=== PATIENT | male | born 1950 | race Caucasian/White ===

== ENCOUNTER 2020-06-01 10:47 | Emergency (ER) | payer OTHER ==
[~2020-06-01] VITALS: Ht 170.2 cm; Wt 93.2 kg
[~2020-06-01 10:47] MED LIST: DIVA-112 PO; DOCU-342 PO; HYDR-4031 PO; OMEP20 PO; PANT-31 PO; QUET300T2 PO; WARF3TAB8 PO
[2020-06-01 15:22] LABS: BASOPHILS % (AUTO) 0.9 % (0.0-2.0); EOSINOPHILS % (AUTO) 3.6 % (1.0-6.0); HEMATOCRIT 38.2 % (41-53); HEMOGLOBIN 13.1 g/dL (13.5-17.5); LYMPHOCYTES # (AUTO) 1.6 K/uL (1.0-4.8); LYMPHOCYTES % (AUTO) 25.7 % (22.0-44.0); MEAN CORPUSCULAR HEMOGLOBIN 33.9 pg (26.0-34.0); MEAN CORPUSCULAR HGB CONC 34.2 G/dL (31.0-37.0); MEAN CORPUSCULAR VOLUME 99 fL (80-100); MONOCYTES # (AUTO) 0.4 K/uL (0.1-1.0); NEUTROPHILS % (AUTO) 63.8 % (40.0-70.0); PLATELET COUNT (AUTO) 158 K/uL (150-450); RED BLOOD CELL COUNT(AUTO) 3.86 MIL/uL (4.50-5.90); RED CELL DISTRIBUTION WIDTH 13.6 % (11.5-14.5)
[2020-06-01 15:33] LABS: ANION GAP 4 mmol/L (8-16); CALCIUM, TOTAL 8.8 mg/dL (8.8-10.5); CARBON DIOXIDE 33 mmol/L (22-29); CHLORIDE 107 mmol/L (98-107); CREATININE 1.12 mg/dL (0.60-1.30); GLOMERULAR FILTR. RATE CALC > 60 mL/min (>60); GLUCOSE,RANDOM 105 mg/dL (70-110); POTASSIUM 4.3 mmol/L (3.5-5.1); SODIUM SERUM 144 mmol/L (136-145); UREA NITROGEN, BLOOD 19 mg/dL (7-18)
[2020-06-01 15:41] LABS: ALANINE AMINOTRANSFERASE 30 U/L (12-78); ALBUMIN 3.6 g/dL (3.4-5.0); ALKALINE PHOSPHATASE 57 U/L (46-116); ASPARTATE AMINOTRANSFERASE 21 U/L (15-37); BILIRUBIN,TOTAL 0.3 mg/dL (0.1-1.0); TOTAL PROTEIN, SERUM 7.1 g/dL (6.4-8.2)
[2020-06-01] MEDS ORDERED: HYDROCODONE/ACETAMINOPHEN 5-325 MG TABLET PO ONE (16:15)
[2020-06-01 16:21] VITALS: BP 130/66
[2020-06-01 16:24] LABS: INR 1.2 (0.9-1.1)
== END 2020-06-01 16:53 | disposition home or self-care (01) ==
LOC: EMS 10:50
DX: I82.401 Acute embolism and thrombosis of unspecified deep veins of right lower extremity (principal); F31.9 Bipolar disorder, unspecified; J44.9 Chronic obstructive pulmonary disease, unspecified; K21.9 Gastro-esophageal reflux disease without esophagitis; F17.210 Nicotine dependence, cigarettes, uncomplicated; Z88.5 Allergy status to narcotic agent; Z79.01 Long term (current) use of anticoagulants
CPT/HCPCS: 93971

== ENCOUNTER 2020-06-11 10:31 | Emergency (ER) | payer OTHER ==
[~2020-06-11] VITALS: Ht 170.2 cm; Wt 90.5 kg
[2020-06-11] MEDS ORDERED: IOVERSOL 350 MG/ML 100 ML VIAL ONE (11:27)
[2020-06-11] MEDS ORDERED: SODIUM CHLORIDE 0.9% 100 ML ONE (11:27)
[2020-06-11] MEDS ORDERED: KETOROLAC TROMETHAMINE 30 MG/ML VIAL IVP ONE (11:30)
[2020-06-11] MEDS ORDERED: ACETAMINOPHEN 500 MG TABLET PO ONE (11:30)
[2020-06-11 11:44] LABS: BASOPHILS % (AUTO) 0.7 % (0.0-2.0); EOSINOPHILS % (AUTO) 7.6 % (1.0-6.0); HEMATOCRIT 39.8 % (41-53); HEMOGLOBIN 13.8 g/dL (13.5-17.5); LYMPHOCYTES # (AUTO) 1.1 K/uL (1.0-4.8); LYMPHOCYTES % (AUTO) 18.8 % (22.0-44.0); MEAN CORPUSCULAR HEMOGLOBIN 34.3 pg (26.0-34.0); MEAN CORPUSCULAR HGB CONC 34.7 G/dL (31.0-37.0); MEAN CORPUSCULAR VOLUME 99 fL (80-100); MONOCYTES # (AUTO) 0.3 K/uL (0.1-1.0); MONOCYTES % (AUTO) 5.5 % (2.0-9.0); NEUTROPHILS # (AUTO) 3.8 K/uL (1.8-7.7); NEUTROPHILS % (AUTO) 67.4 % (40.0-70.0); PLATELET COUNT (AUTO) 169 K/uL (150-450); RED BLOOD CELL COUNT(AUTO) 4.02 MIL/uL (4.50-5.90); RED CELL DISTRIBUTION WIDTH 13.8 % (11.5-14.5)
[2020-06-11 12:16] LABS: ALANINE AMINOTRANSFERASE 20 U/L (12-78); ALBUMIN 3.9 g/dL (3.4-5.0); ALKALINE PHOSPHATASE 51 U/L (46-116); ASPARTATE AMINOTRANSFERASE 14 U/L (15-37); BILIRUBIN,TOTAL 0.3 mg/dL (0.1-1.0); CALCIUM, TOTAL 9.8 mg/dL (8.8-10.5); CARBON DIOXIDE 32 mmol/L (22-29); CREATININE 1.03 mg/dL (0.60-1.30); GLOMERULAR FILTR. RATE CALC > 60 mL/min (>60); GLUCOSE,RANDOM 102 mg/dL (70-110); LIPASE 113 U/L (73-393); TOTAL PROTEIN, SERUM 7.3 g/dL (6.4-8.2); UREA NITROGEN, BLOOD 19 mg/dL (7-18)
[2020-06-11 12:24] LABS: ANION GAP 5 mmol/L (8-16); CHLORIDE 109 mmol/L (98-107); POTASSIUM 4.6 mmol/L (3.5-5.1); SODIUM SERUM 146 mmol/L (136-145)
[2020-06-11 12:39] LABS: APPEARANCE,URINE CLEAR (CLEAR); BILIRUBIN,URINE NEGATIVE (NEGATIVE); GLUCOSE, URINE (UA) NEGATIVE (NEGATIVE); KETONES,URINE NEGATIVE (NEGATIVE); LEUKOCYTE ESTERASE ,URINE NEGATIVE (NEGATIVE); NITRATE,URINE NEGATIVE (NEGATIVE); OCCULT BLOOD,URINE NEGATIVE (NEGATIVE); PH,URINE 7.5 (5.0-8.0); PROTEIN,URINE NEGATIVE (NEGATIVE)
[2020-06-11] MEDS ORDERED: DOCUSATE SODIUM 100 MG CAPSULE PO ONE (13:30)
[2020-06-11 13:58] VITALS: BP 148/75
== END 2020-06-11 14:07 | disposition home or self-care (01) ==
LOC: EMS 10:35
DX: K59.00 Constipation, unspecified (principal); F31.9 Bipolar disorder, unspecified; J44.9 Chronic obstructive pulmonary disease, unspecified; K21.9 Gastro-esophageal reflux disease without esophagitis; I51.9 Heart disease, unspecified; F17.210 Nicotine dependence, cigarettes, uncomplicated; Z79.01 Long term (current) use of anticoagulants; Z88.5 Allergy status to narcotic agent
CPT/HCPCS: 36415; 74177; 80053; 81003; 83690; 85025; 96374; 99285; J1885; J7050; Q9967

== ENCOUNTER 2024-03-29 17:53 | Inpatient (IN) | payer OTHER ==
[~2024-03-29] VITALS: Ht 170.2 cm; Wt 65.0 kg
[~2024-03-29 17:53] MED LIST changes: +ACET-784 PO; +ALBU18HF12 IH; +APIX5TAB PO; +ARIP10TA8 PO; +CARV3 PO; +DIVA-111 PO; -DIVA-112 PO; -DOCU-342 PO; +DOCU-385 PO; +FAMO20 PO; +FURO20 PO; -HYDR-4031 PO; -OMEP20 PO; -PANT-31 PO; -QUET300T2 PO; +SODI5POW3 PO; +TAMS0.4C94 PO; +TRAZ-252 PO; +UMEC62.5 IH; -WARF3TAB8 PO
[2024-03-29 21:11] LABS: COVID AG,FIA SOURCE NASAL SWAB
[2024-03-29 21:17] LABS: APPEARANCE,URINE CLEAR (CLEAR); BILIRUBIN,URINE NEGATIVE (NEGATIVE); COLOR,URINE LIGHT YELLOW (YELLOW); GLUCOSE, URINE (UA) NEGATIVE (NEGATIVE); KETONES,URINE NEGATIVE (NEGATIVE); LEUKOCYTE ESTERASE ,URINE MODERATE (NEGATIVE); NITRATE,URINE NEGATIVE (NEGATIVE); OCCULT BLOOD,URINE NEGATIVE (NEGATIVE); PH,URINE 6.5 (5.0-8.0); PH,URINE DRUG SCREEN 6.5 (5.0-8.0); PROTEIN,URINE 30-70 mg/dL (NEGATIVE); SPECIFIC GRAVITIY, URINE 1.012 (1.003-1.030); UROBILINOGEN,URINE <=1.0 mg/dL (<=1.0)
[2024-03-29 21:22] LABS: ALCOHOL, URINE DRUG SCREEN NEGATIVE (NEGATIVE); AMPHET/METH SCREEN,URINE NEGATIVE (NEGATIVE); BARBITURATE SCREEN, URINE NEGATIVE (NEGATIVE); BENZODIAZEPINES SCREEN,URINE NEGATIVE (NEGATIVE); CANNABINOID SCREEN,URINE NEGATIVE (NEGATIVE); COCAINE SCREEN,URINE NEGATIVE (NEGATIVE); METHADONE SCREEN, URINE NEGATIVE (NEGATIVE); OPIATE SCREEN,URINE NEGATIVE (NEGATIVE); PHENCYCLIDINE SCREEN,URINE NEGATIVE (NEGATIVE)
[2024-03-29 21:26] LABS: SARS-COV2 (COVID) ANTIGEN,FIA Negative (Negative)
[2024-03-29 21:39] LABS: BACTERIA,URINE None Seen /HPF (None Seen); RBC,URINE None Seen /HPF (0-2); SQUAMOUS EPITHELIAL CELL,UR Few /LPF (None Seen)
[2024-03-29 21:56] LABS: BASOPHILS % (AUTO) 0.7 % (0.0-2.0); EOSINOPHILS % (AUTO) 8.9 % (1.0-6.0); HEMATOCRIT 28.2 % (41-53); HEMOGLOBIN 9.6 g/dL (13.5-17.5); LYMPHOCYTES # (AUTO) 1.2 K/uL (1.0-4.8); LYMPHOCYTES % (AUTO) 18.4 % (22.0-44.0); MEAN CORPUSCULAR HEMOGLOBIN 33.3 pg (26.0-34.0); MEAN CORPUSCULAR HGB CONC 33.9 G/dL (31.0-37.0); MEAN CORPUSCULAR VOLUME 98 fL (80-100); MONOCYTES # (AUTO) 0.5 K/uL (0.1-1.0); MONOCYTES % (AUTO) 7.6 % (2.0-9.0); NEUTROPHILS # (AUTO) 4.2 K/uL (1.8-7.7); NEUTROPHILS % (AUTO) 64.4 % (40.0-70.0); PLATELET COUNT (AUTO) 169 K/uL (150-450); RED BLOOD CELL COUNT(AUTO) 2.87 MIL/uL (4.50-5.90); RED CELL DISTRIBUTION WIDTH 17.7 % (11.5-14.5); WHITE BLOOD COUNT (AUTO) 6.4 K/uL (4.5-11.0)
[2024-03-29 22:01] LABS: ANION GAP 10 mmol/L (8-16); CALCIUM, TOTAL 9.2 mg/dL (8.8-10.5); CARBON DIOXIDE 24 mmol/L (22-29); CHLORIDE 106 mmol/L (98-107); CREATININE 2.81 mg/dL (0.60-1.30); GLOMERULAR FILTR. RATE CALC 22 mL/min (>60); GLUCOSE,RANDOM 95 mg/dL (70-110); POTASSIUM 4.2 mmol/L (3.5-5.1); SODIUM SERUM 140 mmol/L (136-145); UREA NITROGEN, BLOOD 50 mg/dL (7-18)
[2024-03-29 22:08] LABS: ALANINE AMINOTRANSFERASE 12 U/L (12-78); ALBUMIN 3.4 g/dL (3.4-5.0); ALKALINE PHOSPHATASE 78 U/L (46-116); ASPARTATE AMINOTRANSFERASE 15 U/L (15-37); BILIRUBIN,TOTAL 0.3 mg/dL (0.1-1.0); TOTAL PROTEIN, SERUM 7.3 g/dL (6.4-8.2)
[2024-03-29 22:53] LABS: ALCOHOL, BLOOD (SERUM) < 3 mg/dL (0-10)
[2024-03-29] MEDS: CEPHALEXIN MONOHYDRATE 500 MG CAPSULE PO ONE (23:48)
[2024-03-30] MEDS: ACETAMINOPHEN 500 MG TABLET PO ONE (12:07)
[2024-03-30 14:30] VITALS: BP 124/63; PULSE 70; RESP 20; TEMP 97.4
[2024-03-30] MEDS ORDERED: ONDANSETRON HCL 4 MG/2 ML VIAL IVP PRN (17:45)
[2024-03-30] MEDS ORDERED: MAGNESIUM HYDROXIDE SUSPENSION 30 ML UDCUP PO PRN (17:45)
[2024-03-30] MEDS ORDERED: BISACODYL 10 MG RECTAL RECTAL SUPPOSITORY PR PRN (17:45)
[2024-03-30] MEDS ORDERED: CefTRIAXone SODIUM 2 GM in DEXTROSE 5%-WATER 50 ML IV SCH (17:45)
[2024-03-30] MEDS: ACETAMINOPHEN 325 MG TABLET PO PRN (18:23)
[2024-03-30 20:36] VITALS: BP 123/61; PULSE 69; RESP 18; TEMP 98.1
[2024-03-30] MEDS: CARVEDILOL 3.125 MG TABLET PO SCH (20:46)
[2024-03-30] MEDS: DOCUSATE SODIUM 100 MG CAPSULE PO SCH (20:46)
[2024-03-30] MEDS: TraZODone HCL 50 MG TABLET PO SCH (20:46)
[2024-03-30] MEDS: FAMOTIDINE 20 MG TABLET PO SCH (20:46)
[2024-03-30] MEDS: APIXABAN 5 MG TABLET PO SCH (20:46)
[2024-03-30] MEDS: DIVALPROEX SODIUM 250 MG DR TABLET PO SCH (20:46)
[2024-03-30] MEDS: TAMSULOSIN HCL 0.4 MG CAPSULE PO SCH (20:46)
[2024-03-30] MEDS: HEPARIN SODIUM,PORCINE 5,000 UNITS/ML VIAL SQ SCH (23:03)
[2024-03-31 04:23] VITALS: BP 123/72; PULSE 69; RESP 18; TEMP 97.5
[2024-03-31 08:48] VITALS: BP 120/68; PULSE 69; RESP 18; TEMP 98.2
[2024-03-31] MEDS: PANTOPRAZOLE SODIUM 40 MG DR TABLET PO SCH (08:54)
[2024-03-31] MEDS: ARIPiprazole 10 MG TABLET PO SCH (08:54)
[2024-03-31] MEDS: SODIUM ZIRCONIUM CYCLOSILICATE 5 GM POWDER PACKET PO SCH (08:56)
[2024-03-31] MEDS ORDERED: MISC MED-CONVERTED FROM AMBULATORY (Umeclidinium Bromide (Incruse Ellipta) 1 INH) IH SCH (09:00)
[2024-03-31] MEDS: FUROSEMIDE 20 MG TABLET PO SCH (10:38)
[2024-03-31] MEDS: ESCITALOPRAM OXALATE 10 MG TABLET PO SCH (10:39)
[2024-03-31 16:04] LABS: BASOPHILS % (AUTO) 0.8 % (0.0-2.0); EOSINOPHILS % (AUTO) 10.9 % (1.0-6.0); HEMATOCRIT 26.4 % (41-53); HEMOGLOBIN 8.9 g/dL (13.5-17.5); LYMPHOCYTES # (AUTO) 1.1 K/uL (1.0-4.8); LYMPHOCYTES % (AUTO) 23.4 % (22.0-44.0); MEAN CORPUSCULAR HEMOGLOBIN 33.3 pg (26.0-34.0); MEAN CORPUSCULAR HGB CONC 33.8 G/dL (31.0-37.0); MEAN CORPUSCULAR VOLUME 99 fL (80-100); MONOCYTES # (AUTO) 0.4 K/uL (0.1-1.0); MONOCYTES % (AUTO) 9.4 % (2.0-9.0); NEUTROPHILS # (AUTO) 2.6 K/uL (1.8-7.7); NEUTROPHILS % (AUTO) 55.5 % (40.0-70.0); PLATELET COUNT (AUTO) 165 K/uL (150-450); RED BLOOD CELL COUNT(AUTO) 2.68 MIL/uL (4.50-5.90); RED CELL DISTRIBUTION WIDTH 17.5 % (11.5-14.5); WHITE BLOOD COUNT (AUTO) 4.7 K/uL (4.5-11.0)
[2024-03-31 16:12] LABS: CALCIUM, TOTAL 8.8 mg/dL (8.8-10.5); CREATININE 3.23 mg/dL (0.60-1.30); POTASSIUM 5.7 mmol/L (3.5-5.1)
[2024-03-31 16:18] LABS: ALBUMIN 3.3 g/dL (3.4-5.0); BILIRUBIN,TOTAL 0.2 mg/dL (0.1-1.0); TOTAL PROTEIN, SERUM 7.1 g/dL (6.4-8.2)
[2024-03-31 16:41] VITALS: BP 119/59; PULSE 70; RESP 18; TEMP 97.5
[2024-03-31 20:12] VITALS: BP 116/59; PULSE 69; RESP 18; TEMP 97.9
[2024-03-31] MEDS: ZOLPIDEM TARTRATE 5 MG TABLET PO PRN (20:18)
[2024-04-01 04:42] VITALS: BP 111/63; PULSE 69; RESP 18; TEMP 98
[2024-04-01 07:14] LABS: EOSINOPHILS % (AUTO) 13.6 % (1.0-6.0); HEMATOCRIT 26.6 % (41-53); HEMOGLOBIN 9.2 g/dL (13.5-17.5); LYMPHOCYTES # (AUTO) 1.2 K/uL (1.0-4.8); LYMPHOCYTES % (AUTO) 27.6 % (22.0-44.0); MEAN CORPUSCULAR HEMOGLOBIN 33.7 pg (26.0-34.0); MEAN CORPUSCULAR HGB CONC 34.6 G/dL (31.0-37.0); MEAN CORPUSCULAR VOLUME 97 fL (80-100); MONOCYTES # (AUTO) 0.4 K/uL (0.1-1.0); NEUTROPHILS % (AUTO) 48.8 % (40.0-70.0); PLATELET COUNT (AUTO) 164 K/uL (150-450); RED BLOOD CELL COUNT(AUTO) 2.73 MIL/uL (4.50-5.90); RED CELL DISTRIBUTION WIDTH 17.7 % (11.5-14.5); WHITE BLOOD COUNT (AUTO) 4.2 K/uL (4.5-11.0)
[2024-04-01 07:31] LABS: ALBUMIN 3.1 g/dL (3.4-5.0); BILIRUBIN,TOTAL 0.2 mg/dL (0.1-1.0); CREATININE 3.21 mg/dL (0.60-1.30); POTASSIUM 5.2 mmol/L (3.5-5.1); TOTAL PROTEIN, SERUM 6.9 g/dL (6.4-8.2)
[2024-04-01 08:00] VITALS: BP 101/58; PULSE 69; RESP 18; TEMP 98
[2024-04-01 08:05] VITALS: BP 116/60; PULSE 70; RESP 18; TEMP 97.3
[2024-04-01 16:03] VITALS: BP 115/63; PULSE 71; RESP 20; TEMP 97.9
[2024-04-01 19:51] VITALS: BP 127/67; PULSE 70; RESP 18; TEMP 97.3
[2024-04-02 04:57] VITALS: BP 122/60; PULSE 68; RESP 18; TEMP 97.4
[2024-04-02 07:53] LABS: HEMATOCRIT 26.4 % (41-53); HEMOGLOBIN 9.1 g/dL (13.5-17.5); MEAN CORPUSCULAR HEMOGLOBIN 33.9 pg (26.0-34.0); MEAN CORPUSCULAR HGB CONC 34.6 G/dL (31.0-37.0); MEAN CORPUSCULAR VOLUME 98 fL (80-100); PLATELET COUNT (AUTO) 169 K/uL (150-450); RED BLOOD CELL COUNT(AUTO) 2.69 MIL/uL (4.50-5.90); RED CELL DISTRIBUTION WIDTH 17.4 % (11.5-14.5)
[2024-04-02 08:03] LABS: BILIRUBIN,TOTAL 0.2 mg/dL (0.1-1.0); CALCIUM, TOTAL 8.8 mg/dL (8.8-10.5); CREATININE 3.35 mg/dL (0.60-1.30); TOTAL PROTEIN, SERUM 7.3 g/dL (6.4-8.2)
[2024-04-02 08:11] VITALS: BP 125/65; PULSE 71; RESP 18; TEMP 97.7
[2024-04-02 08:30] LABS: BAND NEUTROPHILS % (MANUAL) 0 % (0-5)
[2024-04-02 09:33] LABS: EOSINOPHILS % (MANUAL) 5 % (1-6); LYMPHOCYTES % (MANUAL) 36 % (22-44); MONOCYTES % (MANUAL) 9 % (2-9); SEGMENTED NEUTROPHILS % 50 % (40-70); TOTAL CELLS COUNTED 100
[2024-04-02 09:34] LABS: WHITE BLOOD COUNT (AUTO) 3.6 K/uL (4.5-11.0)
[2024-04-02] MEDS: SODIUM CHLORIDE 0.45% 1,000 ML IV SCH (13:52)
[2024-04-02 20:12] VITALS: BP 127/67; PULSE 69; RESP 18; TEMP 97.6
[2024-04-03 04:17] VITALS: BP 123/70; PULSE 69; RESP 18; TEMP 97.7
[2024-04-03 07:51] LABS: BASOPHILS % (AUTO) 1.2 % (0.0-2.0); EOSINOPHILS % (AUTO) 13.3 % (1.0-6.0); HEMATOCRIT 26.2 % (41-53); LYMPHOCYTES % (AUTO) 28.9 % (22.0-44.0); MEAN CORPUSCULAR HEMOGLOBIN 33.9 pg (26.0-34.0); MEAN CORPUSCULAR HGB CONC 34.4 G/dL (31.0-37.0); MEAN CORPUSCULAR VOLUME 99 fL (80-100); MONOCYTES # (AUTO) 0.4 K/uL (0.1-1.0); MONOCYTES % (AUTO) 10.8 % (2.0-9.0); NEUTROPHILS # (AUTO) 1.6 K/uL (1.8-7.7); NEUTROPHILS % (AUTO) 45.8 % (40.0-70.0); PLATELET COUNT (AUTO) 159 K/uL (150-450); RED BLOOD CELL COUNT(AUTO) 2.66 MIL/uL (4.50-5.90); RED CELL DISTRIBUTION WIDTH 17.4 % (11.5-14.5); WHITE BLOOD COUNT (AUTO) 3.5 K/uL (4.5-11.0)
[2024-04-03 08:02] VITALS: BP 125/59; PULSE 69; RESP 18; TEMP 97.6
[2024-04-03 08:15] LABS: ALBUMIN 2.9 g/dL (3.4-5.0); BILIRUBIN,TOTAL 0.2 mg/dL (0.1-1.0); CALCIUM, TOTAL 8.6 mg/dL (8.8-10.5); CREATININE 3.32 mg/dL (0.60-1.30); POTASSIUM 5.1 mmol/L (3.5-5.1); TOTAL PROTEIN, SERUM 6.8 g/dL (6.4-8.2)
[2024-04-03 16:53] VITALS: BP 130/65; PULSE 69; RESP 18; TEMP 98.2
[2024-04-03 20:24] VITALS: BP 124/58; PULSE 68; RESP 18; TEMP 97.5
[2024-04-04 06:41] VITALS: BP 121/61; PULSE 70; RESP 18; TEMP 97.8
[2024-04-04 07:41] LABS: BASOPHILS % (AUTO) 0.8 % (0.0-2.0); EOSINOPHILS % (AUTO) 13.2 % (1.0-6.0); HEMATOCRIT 25.5 % (41-53); HEMOGLOBIN 8.8 g/dL (13.5-17.5); LYMPHOCYTES % (AUTO) 30.9 % (22.0-44.0); MEAN CORPUSCULAR HEMOGLOBIN 34.1 pg (26.0-34.0); MEAN CORPUSCULAR HGB CONC 34.6 G/dL (31.0-37.0); MEAN CORPUSCULAR VOLUME 99 fL (80-100); MONOCYTES # (AUTO) 0.3 K/uL (0.1-1.0); MONOCYTES % (AUTO) 10.9 % (2.0-9.0); NEUTROPHILS # (AUTO) 1.4 K/uL (1.8-7.7); NEUTROPHILS % (AUTO) 44.2 % (40.0-70.0); PLATELET COUNT (AUTO) 170 K/uL (150-450); RED BLOOD CELL COUNT(AUTO) 2.59 MIL/uL (4.50-5.90); RED CELL DISTRIBUTION WIDTH 17.4 % (11.5-14.5); WHITE BLOOD COUNT (AUTO) 3.2 K/uL (4.5-11.0)
[2024-04-04 07:56] LABS: ALBUMIN 2.8 g/dL (3.4-5.0); BILIRUBIN,TOTAL 0.2 mg/dL (0.1-1.0); CALCIUM, TOTAL 8.4 mg/dL (8.8-10.5); CREATININE 3.15 mg/dL (0.60-1.30); TOTAL PROTEIN, SERUM 6.6 g/dL (6.4-8.2)
[2024-04-04 09:18] VITALS: BP 121/68; PULSE 69; RESP 18; TEMP 97.6
[2024-04-04 15:58] VITALS: BP 118/59; PULSE 70; RESP 18; TEMP 97.3
[2024-04-04 20:07] VITALS: BP 130/62; PULSE 69; RESP 18; TEMP 97.4
[2024-04-05 05:16] VITALS: BP 121/56; PULSE 69; RESP 18; TEMP 97.7
[2024-04-05 08:33] VITALS: BP 120/60; PULSE 70; RESP 18; TEMP 97.5
[2024-04-05 16:09] VITALS: BP 141/69; PULSE 69; RESP 18; TEMP 97.6
[2024-04-05 20:08] VITALS: BP 127/68; PULSE 86; RESP 18; TEMP 97.9
[2024-04-05 22:27] LABS: BASOPHILS % (AUTO) 0.8 % (0.0-2.0); HEMATOCRIT 25.3 % (41-53); HEMOGLOBIN 8.6 g/dL (13.5-17.5); LYMPHOCYTES # (AUTO) 0.9 K/uL (1.0-4.8); LYMPHOCYTES % (AUTO) 23.4 % (22.0-44.0); MEAN CORPUSCULAR HEMOGLOBIN 33.7 pg (26.0-34.0); MEAN CORPUSCULAR HGB CONC 34.1 G/dL (31.0-37.0); MEAN CORPUSCULAR VOLUME 99 fL (80-100); MONOCYTES # (AUTO) 0.4 K/uL (0.1-1.0); NEUTROPHILS % (AUTO) 52.8 % (40.0-70.0); PLATELET COUNT (AUTO) 156 K/uL (150-450); RED BLOOD CELL COUNT(AUTO) 2.56 MIL/uL (4.50-5.90); RED CELL DISTRIBUTION WIDTH 17.1 % (11.5-14.5); WHITE BLOOD COUNT (AUTO) 3.8 K/uL (4.5-11.0)
[2024-04-05 22:49] LABS: ALBUMIN 2.8 g/dL (3.4-5.0); BILIRUBIN,TOTAL 0.3 mg/dL (0.1-1.0); CALCIUM, TOTAL 8.7 mg/dL (8.8-10.5); CREATININE 3.24 mg/dL (0.60-1.30); POTASSIUM 4.9 mmol/L (3.5-5.1); TOTAL PROTEIN, SERUM 6.7 g/dL (6.4-8.2)
[2024-04-06 03:52] VITALS: BP 122/61; PULSE 71; RESP 18; TEMP 97.3
[2024-04-06 08:13] VITALS: BP 127/61; PULSE 70; RESP 20; TEMP 97.7
[2024-04-06 20:21] VITALS: BP 114/69; PULSE 70; RESP 18; TEMP 97.8
[2024-04-07 05:44] VITALS: BP 110/65; PULSE 69; RESP 18; TEMP 98
[2024-04-07 08:50] VITALS: BP 119/63; PULSE 69; RESP 18; TEMP 98.3
[2024-04-07 16:49] VITALS: BP 129/66; PULSE 69; RESP 18; TEMP 97.7
[2024-04-07 21:33] VITALS: BP 140/70; PULSE 70; RESP 18; TEMP 97.9
[2024-04-08 05:05] VITALS: BP 134/64; PULSE 70; RESP 18; TEMP 97.8
[2024-04-08 07:55] VITALS: BP 130/68; PULSE 68; RESP 18; TEMP 97.6
[2024-04-08 16:30] VITALS: BP 146/72; PULSE 70; RESP 18; TEMP 97.6
[2024-04-08 19:34] VITALS: BP 134/68; PULSE 70; RESP 20; TEMP 97.8
[2024-04-09] VITALS (7 sets, daily range): BP systolic 115–131; BP diastolic 50–69; PULSE 69–75; RESP 18–20; TEMP 98–100.7; O2SAT 96–99
[2024-04-09 11:46] LABS: HEMATOCRIT 22.8 % (41-53); HEMOGLOBIN 7.8 g/dL (13.5-17.5); MEAN CORPUSCULAR HEMOGLOBIN 33.9 pg (26.0-34.0); MEAN CORPUSCULAR HGB CONC 34.2 G/dL (31.0-37.0); MEAN CORPUSCULAR VOLUME 99 fL (80-100); PLATELET COUNT (AUTO) 119 K/uL (150-450); RED CELL DISTRIBUTION WIDTH 16.7 % (11.5-14.5); WHITE BLOOD COUNT (AUTO) 4.6 K/uL (4.5-11.0)
[2024-04-09 11:57] LABS: BAND NEUTROPHILS % (MANUAL) 0 % (0-5)
[2024-04-09 12:24] LABS: ALBUMIN 2.4 g/dL (3.4-5.0); BILIRUBIN,TOTAL 0.3 mg/dL (0.1-1.0); CALCIUM, TOTAL 8.1 mg/dL (8.8-10.5); CREATININE 2.94 mg/dL (0.60-1.30); POTASSIUM 3.9 mmol/L (3.5-5.1)
[2024-04-09 12:32] LABS: EOSINOPHILS % (MANUAL) 1 % (1-6); LYMPHOCYTES % (MANUAL) 10 % (22-44); MONOCYTES % (MANUAL) 2 % (2-9); SEGMENTED NEUTROPHILS % 87 % (40-70); TOTAL CELLS COUNTED 100
[2024-04-09] MEDS: ALBUTEROL SULFATE 2.5 MG/0.5 ML NEB SOLUTION NEB PRN (16:31)
[2024-04-09] MEDS: IPRATROPIUM BROMIDE 0.5 MG/2.5 ML NEB SOLUTION NEB PRN (16:31)
[2024-04-09 18:00] LABS: APPEARANCE,URINE HAZY (CLEAR); BILIRUBIN,URINE NEGATIVE (NEGATIVE); COLOR,URINE YELLOW (YELLOW); GLUCOSE, URINE (UA) NEGATIVE (NEGATIVE); KETONES,URINE NEGATIVE (NEGATIVE); LEUKOCYTE ESTERASE ,URINE LARGE (NEGATIVE); NITRATE,URINE NEGATIVE (NEGATIVE); OCCULT BLOOD,URINE MODERATE (NEGATIVE); PH,URINE 5.5 (5.0-8.0); PROTEIN,URINE 30-70 mg/dL (NEGATIVE); SPECIFIC GRAVITIY, URINE 1.013 (1.003-1.030); UROBILINOGEN,URINE <=1.0 mg/dL (<=1.0)
[2024-04-09 18:05] LABS: BACTERIA,URINE Moderate /HPF (None Seen); SQUAMOUS EPITHELIAL CELL,UR Few /LPF (None Seen); WBC,URINE 26-50 /HPF (0-5)
[2024-04-10 05:48] VITALS: BP 114/61; PULSE 70; RESP 18; TEMP 97.9
[2024-04-10 08:18] VITALS: BP 112/53; PULSE 70; RESP 19; TEMP 97.8
[2024-04-10 15:09] VITALS: BP 122/62; PULSE 72; RESP 19; TEMP 98.2
[2024-04-10] MEDS ORDERED: SODIUM CHLORIDE 0.9% 500 ML IV ONE (16:13)
[2024-04-10] MEDS: CefTRIAXone 1 GM/DEXTROSE 50 ML IV SCH (16:29)
[2024-04-10 19:35] VITALS: BP 129/82; PULSE 69; RESP 20; TEMP 97.9
[2024-04-11 04:46] VITALS: BP 119/54; PULSE 69; RESP 18; TEMP 97.9
[2024-04-11 07:40] VITALS: BP 103/50; PULSE 69; RESP 18; TEMP 98.1
[2024-04-11] MEDS ORDERED: CefTRIAXone SODIUM 1 GM/VIAL IV SCH (15:15)
[2024-04-11 15:51] VITALS: BP 106/62; PULSE 70; RESP 18; TEMP 97.3
[2024-04-11 20:09] VITALS: BP 112/57; PULSE 69; RESP 18; TEMP 98
[2024-04-12 04:45] VITALS: BP 117/65; PULSE 69; RESP 18; TEMP 98.1
[2024-04-12 10:50] VITALS: BP 118/68; PULSE 68; RESP 18; TEMP 98.5
[2024-04-12] MEDS: LEVOFLOXACIN 750 MG/D5% WATER 150 ML IV SCH (17:48)
[2024-04-12 20:10] VITALS: BP 124/58; PULSE 70; RESP 17; TEMP 97.5
[2024-04-12] MEDS: LEVOFLOXACIN 750 MG TABLET PO SCH (20:17)
[2024-04-13 04:43] VITALS: BP 121/67; PULSE 70; RESP 18; TEMP 98
[2024-04-13 08:14] VITALS: BP 118/64; PULSE 68; RESP 19; TEMP 98.2
[2024-04-13 17:09] VITALS: BP 128/71; PULSE 72; RESP 19; TEMP 98.2
[2024-04-13 20:04] VITALS: BP 121/69; PULSE 69; RESP 17; TEMP 97.4
[2024-04-14 04:56] VITALS: BP 121/64; PULSE 69; RESP 18; TEMP 97.7
[2024-04-14 08:03] VITALS: BP 125/68; PULSE 70; RESP 18; TEMP 97.5
[2024-04-14 11:14] LABS: BASOPHILS % (AUTO) 0.6 % (0.0-2.0); EOSINOPHILS % (AUTO) 11.9 % (1.0-6.0); HEMATOCRIT 23.8 % (41-53); HEMOGLOBIN 8.1 g/dL (13.5-17.5); LYMPHOCYTES # (AUTO) 0.7 K/uL (1.0-4.8); LYMPHOCYTES % (AUTO) 17.6 % (22.0-44.0); MEAN CORPUSCULAR HEMOGLOBIN 33.8 pg (26.0-34.0); MEAN CORPUSCULAR HGB CONC 34.1 G/dL (31.0-37.0); MEAN CORPUSCULAR VOLUME 99 fL (80-100); MONOCYTES # (AUTO) 0.5 K/uL (0.1-1.0); MONOCYTES % (AUTO) 13.7 % (2.0-9.0); NEUTROPHILS # (AUTO) 2.2 K/uL (1.8-7.7); NEUTROPHILS % (AUTO) 56.2 % (40.0-70.0); PLATELET COUNT (AUTO) 136 K/uL (150-450); RED CELL DISTRIBUTION WIDTH 16.2 % (11.5-14.5); WHITE BLOOD COUNT (AUTO) 3.9 K/uL (4.5-11.0)
[2024-04-14 11:24] LABS: CALCIUM, TOTAL 8.8 mg/dL (8.8-10.5); CREATININE 2.93 mg/dL (0.60-1.30); POTASSIUM 5.4 mmol/L (3.5-5.1)
[2024-04-14 11:30] LABS: ALBUMIN 2.5 g/dL (3.4-5.0); BILIRUBIN,TOTAL 0.2 mg/dL (0.1-1.0); TOTAL PROTEIN, SERUM 6.4 g/dL (6.4-8.2)
[2024-04-14 15:53] VITALS: BP 113/64; PULSE 70; RESP 18; TEMP 97.7
[2024-04-14] MEDS: VANCOMYCIN 1.5 GM/WATER(PEG) 300 ML IV ONE (17:11)
[2024-04-14 19:26] VITALS: BP 109/62; PULSE 69; RESP 20; TEMP 97.9
[2024-04-15 05:15] VITALS: BP 108/54; PULSE 72; RESP 18; TEMP 97.8
[2024-04-15 08:31] LABS: BASOPHILS % (AUTO) 0.6 % (0.0-2.0); HEMATOCRIT 25.3 % (41-53); HEMOGLOBIN 8.7 g/dL (13.5-17.5); LYMPHOCYTES # (AUTO) 0.4 K/uL (1.0-4.8); LYMPHOCYTES % (AUTO) 10.3 % (22.0-44.0); MEAN CORPUSCULAR HEMOGLOBIN 34.1 pg (26.0-34.0); MEAN CORPUSCULAR HGB CONC 34.5 G/dL (31.0-37.0); MEAN CORPUSCULAR VOLUME 99 fL (80-100); MONOCYTES # (AUTO) 0.3 K/uL (0.1-1.0); MONOCYTES % (AUTO) 6.5 % (2.0-9.0); NEUTROPHILS # (AUTO) 3.2 K/uL (1.8-7.7); NEUTROPHILS % (AUTO) 75.6 % (40.0-70.0); PLATELET COUNT (AUTO) 143 K/uL (150-450); RED BLOOD CELL COUNT(AUTO) 2.55 MIL/uL (4.50-5.90); RED CELL DISTRIBUTION WIDTH 16.3 % (11.5-14.5); WHITE BLOOD COUNT (AUTO) 4.2 K/uL (4.5-11.0)
[2024-04-15 08:39] LABS: ALBUMIN 2.4 g/dL (3.4-5.0); BILIRUBIN,TOTAL 0.2 mg/dL (0.1-1.0); CALCIUM, TOTAL 8.7 mg/dL (8.8-10.5); CREATININE 3.11 mg/dL (0.60-1.30); POTASSIUM 5.1 mmol/L (3.5-5.1); TOTAL PROTEIN, SERUM 6.3 g/dL (6.4-8.2)
[2024-04-15 08:41] VITALS: BP 109/52; PULSE 70; RESP 18; TEMP 97.9
[2024-04-15 15:35] VITALS: BP 114/59; PULSE 69; RESP 20; TEMP 97.6
[2024-04-15 19:55] VITALS: BP 117/64; PULSE 69; RESP 18; TEMP 97.7
[2024-04-16 04:11] VITALS: BP 112/69; PULSE 69; RESP 18; TEMP 98.1
[2024-04-16 06:59] LABS: BASOPHILS % (AUTO) 1.2 % (0.0-2.0); EOSINOPHILS % (AUTO) 9.7 % (1.0-6.0); HEMATOCRIT 23.9 % (41-53); HEMOGLOBIN 8.2 g/dL (13.5-17.5); LYMPHOCYTES # (AUTO) 0.6 K/uL (1.0-4.8); MEAN CORPUSCULAR HEMOGLOBIN 33.8 pg (26.0-34.0); MEAN CORPUSCULAR HGB CONC 34.1 G/dL (31.0-37.0); MEAN CORPUSCULAR VOLUME 99 fL (80-100); MONOCYTES # (AUTO) 0.4 K/uL (0.1-1.0); MONOCYTES % (AUTO) 10.4 % (2.0-9.0); NEUTROPHILS % (AUTO) 60.7 % (40.0-70.0); PLATELET COUNT (AUTO) 144 K/uL (150-450); RED BLOOD CELL COUNT(AUTO) 2.41 MIL/uL (4.50-5.90); RED CELL DISTRIBUTION WIDTH 16.5 % (11.5-14.5); WHITE BLOOD COUNT (AUTO) 3.4 K/uL (4.5-11.0)
[2024-04-16 07:38] LABS: ALBUMIN 2.4 g/dL (3.4-5.0); BILIRUBIN,TOTAL 0.1 mg/dL (0.1-1.0); CALCIUM, TOTAL 9.1 mg/dL (8.8-10.5); CREATININE 3.22 mg/dL (0.60-1.30); TOTAL PROTEIN, SERUM 6.1 g/dL (6.4-8.2)
[2024-04-16 07:48] VITALS: BP 125/66; PULSE 69; RESP 19; TEMP 97.6
[2024-04-16] MEDS: VANCOMYCIN 1.5 GM/WATER(PEG) 300 ML IV SCH (08:18)
[2024-04-16 16:20] VITALS: BP 110/56; PULSE 69; RESP 18; TEMP 97.5
[2024-04-16] MEDS: SODIUM CHLORIDE 0.45% 1,000 ML IV SCH (19:38)
[2024-04-16 20:33] VITALS: BP 109/57; PULSE 69; RESP 18; TEMP 97.6
[2024-04-17 04:24] VITALS: BP 132/67; PULSE 70; RESP 18; TEMP 98
[2024-04-17] MEDS: LEVOFLOXACIN 750 MG/D5% WATER 150 ML IV SCH (05:35)
[2024-04-17 07:30] VITALS: BP 115/69; PULSE 69; RESP 19; TEMP 97.9
[2024-04-17 16:01] VITALS: BP 124/61; PULSE 69; RESP 18; TEMP 98.1
[2024-04-17 20:00] VITALS: BP 109/59; PULSE 70; RESP 18; TEMP 97.5
[2024-04-18 04:47] VITALS: BP 123/66; PULSE 70; RESP 18; TEMP 97.7
[2024-04-18 07:33] LABS: CALCIUM, TOTAL 8.8 mg/dL (8.8-10.5); CREATININE 3.28 mg/dL (0.60-1.30); POTASSIUM 4.8 mmol/L (3.5-5.1)
[2024-04-18] MEDS: VANCOMYCIN 1GM/WATER(PEG/NADA) 200 ML IV SCH (08:08)
[2024-04-18 08:36] VITALS: BP 114/63; PULSE 76; RESP 20; TEMP 98.8
[2024-04-18] MEDS ORDERED: LEVOFLOXACIN 750 MG TABLET PO SCH (09:00)
[2024-04-18] MEDS ORDERED: ESCI-8 PO (10:22)
[2024-04-18] MEDS ORDERED: LEVO750P7 IV (10:23)
[2024-04-18] MEDS ORDERED: VANC1PIG IV (10:26)
[2024-04-18] MEDS ORDERED: BISA10SU11 PR (10:27)
[2024-04-18] MEDS ORDERED: MAGN-169 PO (10:28)
[2024-04-18] MEDS ORDERED: PANT-31 PO (10:31)
== END 2024-04-18 15:14 | DRG 463 ==
LOC: EMS 18:01 → AHU 03-30 00:01 → 6S 03-30 13:00
PROVIDERS: ADMIT Hospitalist; ATTEND Hospitalist
PROC: 05HC33Z Insertion of Infusion Device into Left Basilic Vein, Percutaneous Approach (ICD-10-PCS; principal; 2024-04-16)
DX: N39.0 Urinary tract infection, site not specified (principal); R78.81 Bacteremia; F25.1 Schizoaffective disorder, depressive type; F33.2 Major depressive disorder, recurrent severe without psychotic features; R45.851 Suicidal ideations; I12.9 Hypertensive chronic kidney disease with stage 1 through stage 4 chronic kidney disease, or unspecified chronic kidney disease; J44.9 Chronic obstructive pulmonary disease, unspecified; Z20.822 Contact with and (suspected) exposure to COVID-19; N18.30 Chronic kidney disease, stage 3 unspecified; D64.9 Anemia, unspecified; B96.5 Pseudomonas (aeruginosa) (mallei) (pseudomallei) as the cause of diseases classified elsewhere; K21.9 Gastro-esophageal reflux disease without esophagitis; Z72.0 Tobacco use; Z85.46 Personal history of malignant neoplasm of prostate
CPT/HCPCS: 36245; 36569; 71045; 74176; 76770; 76937; 80048; 80053; 80307; 81001; 85025; 87040; 87077; 87086; 87186; 87205; 94640; 97110; 97116; 97163; 97166; 97530; 97535; 99285; G0480; J0696; J1644; J1956; J7040; Q9967; 36415-L1; 36415-TC; J7613

== ENCOUNTER 2024-05-04 15:24 | Emergency (ER) | payer OTHER ==
[~2024-05-04] VITALS: Ht 167.6 cm; Wt 81.8 kg
[~2024-05-04 15:24] MED LIST changes: -ALBU18HF12 IH; +BISA10SU11 PR; +ESCI-8 PO; -FURO20 PO; +LEVO750P7 IV; +MAGN-169 PO; +PANT-31 PO; +VANC1PIG IV
[2024-05-04 15:46] VITALS: TEMP 97.2
[2024-05-04] MEDS ORDERED: BUDE10.2 IH (15:49)
[2024-05-04] MEDS ORDERED: FERR325T23 PO (15:49)
[2024-05-04] MEDS ORDERED: DIVA-112 PO (15:49)
[2024-05-04] MEDS ORDERED: ALBU18HF12 IH (15:49)
[2024-05-04] MEDS ORDERED: FLUT16SP NASAL (15:49)
[2024-05-04] MEDS ORDERED: LORA10TA7 PO (15:49)
[2024-05-04] MEDS ORDERED: SENN-152 PO (15:49)
[2024-05-04 17:20] LABS: APPEARANCE,URINE CLEAR (CLEAR); BILIRUBIN,URINE NEGATIVE (NEGATIVE); COLOR,URINE LIGHT YELLOW (YELLOW); GLUCOSE, URINE (UA) NEGATIVE (NEGATIVE); KETONES,URINE NEGATIVE (NEGATIVE); LEUKOCYTE ESTERASE ,URINE SMALL (NEGATIVE); NITRATE,URINE NEGATIVE (NEGATIVE); OCCULT BLOOD,URINE NEGATIVE (NEGATIVE); PH,URINE 6.5 (5.0-8.0); PROTEIN,URINE TRACE mg/dL (NEGATIVE); SPECIFIC GRAVITIY, URINE 1.012 (1.003-1.030); UROBILINOGEN,URINE <=1.0 mg/dL (<=1.0)
[2024-05-04 17:28] LABS: BACTERIA,URINE Few /HPF (None Seen); RBC,URINE 0-2 /HPF (0-2); SQUAMOUS EPITHELIAL CELL,UR Rare /LPF (None Seen)
[2024-05-04 18:51] LABS: BASOPHILS % (AUTO) 0.8 % (0.0-2.0); EOSINOPHILS % (AUTO) 6.9 % (1.0-6.0); HEMATOCRIT 29.7 % (41-53); HEMOGLOBIN 9.9 g/dL (13.5-17.5); LYMPHOCYTES # (AUTO) 0.9 K/uL (1.0-4.8); LYMPHOCYTES % (AUTO) 19.1 % (22.0-44.0); MEAN CORPUSCULAR HEMOGLOBIN 33.4 pg (26.0-34.0); MEAN CORPUSCULAR HGB CONC 33.5 G/dL (31.0-37.0); MEAN CORPUSCULAR VOLUME 100 fL (80-100); MONOCYTES # (AUTO) 0.4 K/uL (0.1-1.0); MONOCYTES % (AUTO) 8.5 % (2.0-9.0); NEUTROPHILS # (AUTO) 2.9 K/uL (1.8-7.7); NEUTROPHILS % (AUTO) 64.7 % (40.0-70.0); PLATELET COUNT (AUTO) 107 K/uL (150-450); RED BLOOD CELL COUNT(AUTO) 2.97 MIL/uL (4.50-5.90); RED CELL DISTRIBUTION WIDTH 15.5 % (11.5-14.5); WHITE BLOOD COUNT (AUTO) 4.5 K/uL (4.5-11.0)
[2024-05-04 19:00] LABS: CALCIUM, TOTAL 9.8 mg/dL (8.8-10.5); CREATININE 3.1 mg/dL (0.60-1.30); POTASSIUM 4.7 mmol/L (3.5-5.1)
[2024-05-04] MEDS ORDERED: CEPH-558 PO (19:10)
[2024-05-04] MEDS ORDERED: HYDR30CR3 TP (19:10)
[2024-05-04] MEDS: CEPHALEXIN MONOHYDRATE 500 MG CAPSULE PO ONE (19:26)
[2024-05-05 08:30] VITALS: BP 140/75; PULSE 70; RESP 14
== END 2024-05-05 08:58 | disposition home or self-care (01) ==
LOC: EMS 15:24
DX: L24.9 Irritant contact dermatitis, unspecified cause (principal); N39.0 Urinary tract infection, site not specified; F32.9 Major depressive disorder, single episode, unspecified; K21.9 Gastro-esophageal reflux disease without esophagitis; J44.9 Chronic obstructive pulmonary disease, unspecified; N18.9 Chronic kidney disease, unspecified; Z88.0 Allergy status to penicillin; Z88.5 Allergy status to narcotic agent; Z88.8 Allergy status to other drugs, medicaments and biological substances; Z85.46 Personal history of malignant neoplasm of prostate
CPT/HCPCS: 51701; 51702; 80048; 81001; 85025; 87086; 87186; 99283; 99284